=== PATIENT | male | born 1995 | race Asian ===

== ENCOUNTER 2020-02-19 09:19 | Outpatient (REF) | payer SELFPAY | END 2020-02-19 09:20 | disposition home or self-care (01) | LOC: HO.SCI 09:19 | DX: Z13.89 Encounter for screening for other disorder (principal) ==

== ENCOUNTER 2020-02-24 08:46 | Outpatient (REF) | payer MEDICARE, MEDICAID, SELFPAY ==
--- NOTE | 2020-02-24 09:00 | MR_ITS ---
EXAMINATION: BRAIN MRI WITHOUT CONTRAST CLINICAL INFORMATION: Progressive memory decline x1 year. Headaches. COMPARISON: No relevant prior imaging. TECHNIQUE: Multiplanar MR imaging of the brain was performed without contrast. FINDINGS: There is no intracranial mass effect or midline shift. No abnormal extra-axial collection. Lateral and third ventricles are normal. No hydrocephalus. Midline structures including the cervicomedullary junction are normal. No acute bone marrow signal changes. There is no acute territorial infarct. No pathological magnetic susceptibility artifact. Intracranial vascular flow voids are maintained. There is no mastoid or middle ear effusion. Mild paranasal sinus disease primarily affecting the ethmoid air cells and mastoid sinuses. Globes and orbits are symmetric. MR/MR head/brain wo con IMPRESSION: Normal brain MRI.
== END 2020-02-24 08:47 | disposition home or self-care (01) ==
LOC: HO.MRI 08:46
PROVIDERS: Visit Provider Psychiatry & Neurology Neurology
DX: F41.3 Other mixed anxiety disorders (principal)
CPT/HCPCS: 70551

== ENCOUNTER → 2020-03-02 12:45 | Outpatient (BNVA) | payer MEDICARE, MEDICAID, SELFPAY | PROVIDERS: Visit Provider Physician Assistant | DX: E66.9 Obesity, unspecified (principal); Z68.32 Body mass index [BMI] 32.0-32.9, adult; F84.5 Asperger's syndrome | CPT/HCPCS: 99202 ==